=== PATIENT | male | born 1960 | race Two or more races ===

== ENCOUNTER 2022-01-13 05:20 | Day surgery (SDC) | payer OTHER ==
[2022-01-09 09:45] VITALS: BMI 25.6
[2022-01-13] MEDS ORDERED: PROPOFOL 20 ML ONE (10:42)
[2022-01-13] MEDS ORDERED: MIDAZOLAM HCL 2 MG/2 ML SINGLE DOSE VIAL ONE (10:43)
[2022-01-13] MEDS ORDERED: KETOROLAC TROMETHAMINE 30 MG/1 ML VIAL ONE (12:31)
[2022-01-13 13:23] VITALS: RESP 18
[2022-01-13 14:13] VITALS: BP 125/73; PULSE 72; TEMP 97.8
== END 2022-01-13 13:55 | disposition home or self-care (01) ==
LOC: JASU-SURG 05:20
PROVIDERS: ATTEND Urology
PROC: 0TF4XZZ Fragmentation in Left Kidney Pelvis, External Approach (ICD-10-PCS; principal; 2022-01-13 10:00)
DX: N20.0 Calculus of kidney (principal)
CPT/HCPCS: 82962

== ENCOUNTER 2022-05-19 04:02 | Day surgery (SDC) | payer OTHER ==
[2022-05-14 13:47] VITALS: BMI 25.3
[2022-05-19] MEDS ORDERED: MIDAZOLAM HCL 2 MG/2 ML SINGLE DOSE VIAL ONE (09:35)
[2022-05-19 10:52] VITALS: BP 134/83; PULSE 69; RESP 16; TEMP 97.9
== END 2022-05-19 11:20 | disposition home or self-care (01) ==
LOC: JASU-SURG 04:02
PROVIDERS: ATTEND Urology
PROC: 0TF3XZZ Fragmentation in Right Kidney Pelvis, External Approach (ICD-10-PCS; principal; 2022-05-19 09:30)
DX: N20.0 Calculus of kidney (principal)
CPT/HCPCS: 82962

== ENCOUNTER 2022-12-25 04:21 | Day surgery (SDC) | payer OTHER ==
[2022-12-22 13:02] VITALS: BMI 26.9
[2022-12-25 10:13] VITALS: TEMP 97.2
[2022-12-25 10:28] VITALS: BP 110/73; PULSE 74; RESP 18
== END 2022-12-25 10:26 | disposition home or self-care (01) ==
LOC: JASU-ENDO 04:21
PROVIDERS: ATTEND Internal Medicine Gastroenterology
PROC: 0DB68ZX Excision of Stomach, Via Natural or Artificial Opening Endoscopic, Diagnostic (ICD-10-PCS; 2022-12-25)
PROC: 0DB48ZX Excision of Esophagogastric Junction, Via Natural or Artificial Opening Endoscopic, Diagnostic (ICD-10-PCS; 2022-12-25)
PROC: 0DB98ZX Excision of Duodenum, Via Natural or Artificial Opening Endoscopic, Diagnostic (ICD-10-PCS; principal; 2022-12-25 09:30)
DX: K21.00 Gastro-esophageal reflux disease with esophagitis, without bleeding (principal); K44.9 Diaphragmatic hernia without obstruction or gangrene; K29.50 Unspecified chronic gastritis without bleeding
CPT/HCPCS: 88305-TC; 88342-TC

== ENCOUNTER 2023-01-15 04:37 | Day surgery (SDC) | payer OTHER ==
[2023-01-13 12:52] VITALS: BMI 26.9
[2023-01-15 10:50] VITALS: TEMP 97.5
[2023-01-15 11:22] VITALS: RESP 20
[2023-01-15 11:23] VITALS: BP 156/66; PULSE 56
== END 2023-01-15 11:45 | disposition home or self-care (01) ==
LOC: JASU-ENDO 04:37
PROVIDERS: ATTEND Internal Medicine Gastroenterology
PROC: 0DJD8ZZ Inspection of Lower Intestinal Tract, Via Natural or Artificial Opening Endoscopic (ICD-10-PCS; principal; 2023-01-15 10:00)
DX: K64.8 Other hemorrhoids (principal); I10 Essential (primary) hypertension; E11.9 Type 2 diabetes mellitus without complications; Z79.84 Long term (current) use of oral hypoglycemic drugs

== ENCOUNTER 2024-06-14 04:45 | Day surgery (SDC) | payer OTHER ==
[2024-06-14] MEDS ORDERED: MIDAZOLAM HCL 2 MG/2 ML SINGLE DOSE VIAL ONE (11:16)
[2024-06-14 13:00] VITALS: BP 144/80; PULSE 71; RESP 16; TEMP 97.8; BMI 25.0
== END 2024-06-14 12:58 | disposition home or self-care (01) ==
LOC: JASU-SURG 04:45
PROVIDERS: ATTEND Urology
PROC: 0TF4XZZ Fragmentation in Left Kidney Pelvis, External Approach (ICD-10-PCS; principal; 2024-06-14 11:28)
DX: N20.0 Calculus of kidney (principal)
CPT/HCPCS: 82962